=== PATIENT | female | born 1995 | race Caucasian/White ===

== ENCOUNTER 2021-03-20 15:35 | Emergency (ER) | payer BC, SELFPAY ==
[2021-03-20 15:46] VITALS: BP 122/81; PULSE 78; RESP 16; TEMP 36.7; O2SAT 100
[2021-03-20 15:47] VITALS: BP 122/81; PULSE 78; RESP 16; TEMP 36.7; O2SAT 100
--- NOTE | 2021-03-20 16:14 | ED.EAR ---
HPI - Ear Problem General Chief complaint: Ear Stated complaint: Ear Pain Time Seen by Provider: 03/20/21 15:52 Source: patient and RN notes reviewed Mode of arrival: ambulatory Limitations: no limitations History of Present Illness HPI Narrative: 25-year-old female who presents to [facility] with complaints of ear popping for the last few days and pressure. Patient states that she had a really bad cold about 5 weeks ago and she has never really gotten over it.She states that she has cough at night especially and continues to have some nasal drainage. Patient states that she continues to have some nasal drainage, denies any known fevers chills or sweats.. 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 MD Complaint: ear pain Location: bilateral Related Data Allergies Allergy/AdvReac Type Severity Reaction Status Date / Time No Known Allergies Allergy Verified 03/20/21 15:48 Review of Systems Review of Systems: CONSTITUTIONAL: Denies fever, chills, or sweats. EYES: Denies visual changes, redness, or discharge. ENT: Positive rhinorrhea, congestion, sore throat, or otalgia. CARDIOVASCULAR: Denies chest pain, palpitations, or edema. RESPIRATORY: Positive for cough denies dyspnea. GASTROINTESTINAL: Denies abdominal pain, nausea, vomiting, or diarrhea. GENITOURINARY: Denies dysuria or hematuria. SKIN: Denies rash or itching. MUSCULOSKELETAL: Denies back pain, joint pain, or myalgia. NEUROLOGIC: Denies headache, numbness, or weakness. PSYCHIATRIC: Denies anxiety or depression. All systems reviewed & are unremarkable except as noted in HPI and below PMFSH Past Medical History Medical History (Updated 03/20/21 @ 17:42 by Jayda Recio NP) Sinus problem Strep throat Surgical History Surgical History (Updated 03/20/21 @ 17:42 by Jayda Recio NP) No history of previous surgery Family History Family History (Updated 03/20/21 @ 17:43 by Jayda Recio NP) Other No significant family history Social History Social History (Updated 03/20/21 @ 17:43 by Jayda Recio NP) Smoking status: Never smoker Alcohol intake: current Alcohol use details: rare social Substance use: never Living arrangements: with family Gender identity (if verbalized by the patient): Female Comments At time of signature, agree with nursing past medical, surgical, social and family history. There is no relevant family history pertinent to the presenting complaint Exam Narrative: GENERAL: Well-appearing, well-nourished, and in no acute distress. HEAD: Normocephalic, atraumatic. EYES: PERRLA and EOMI. ENT: Nares red with clear rhinorrhea No epistaxis. Mucous membranes moist.TM's normal with dull light reflex, throat red with tonsils enlarged and swollen NECK: Supple.lymphadenopathy CHEST: Clear to auscultation. No respiratory distress.cough noted, SAO2 100% on room air HEART: Regular rate and rhythm. No murmur heard. Normal peripheral pulses. ABDOMEN: Soft, nontender, nondistended, normal active bowel sounds. EXTREMITIES: Normal range of motion. No edema. SKIN: Warm, dry, no rash. NEURO: No focal deficits. Alert and oriented x3. Course Vital Signs Vital signs: Vital Signs Temperature 36.7 C 03/20/21 15:46 Pulse Rate 78 03/20/21 15:46 Respiratory Rate 16 03/20/21 15:46 Blood Pressure 122/81 03/20/21 15:46 Pulse Oximetry 100 03/20/21 15:46 Temperature 36.7 C 03/20/21 15:47 Pulse Rate 78 03/20/21 15:47 Respiratory Rate 16 03/20/21 15:47 Blood Pressure 122/81 03/20/21 15:47 Pulse Oximetry 100 03/20/21 15:47 Medical Decision Making Differential Diagnosis Differential Diagnosis: pharyngitis, strep pharyngitis, URI, tonsillitis, otitis media Medical Records Medical records reviewed: Yes I reviewed the external patient's medical records. Vital Signs Vital Signs: Vital Signs Temperature 36.7 C 03/20/21 15:46 Pulse Rate 78 03/20/21 15:46 Re
== END 2021-03-20 16:40 | disposition home or self-care (01) ==
PROVIDERS: Emergency Provider Registered Nurse
DX: J03.90 Acute tonsillitis, unspecified (principal)
CPT/HCPCS: 87081; 87880; 99213; G0463

== ENCOUNTER 2021-06-19 14:20 | Emergency (ER) | payer BC, SELFPAY ==
[2021-06-19 14:43] VITALS: BP 132/77; PULSE 94; RESP 18; TEMP 36.5; O2SAT 100
--- NOTE | 2021-06-19 15:33 | ED.GENADULT ---
HPI - General Adult General Chief complaint: Upper Respiratory Infection Stated complaint: cold symptoms,both ears clogged Source: patient Mode of arrival: ambulatory Limitations: no limitations History of Present Illness HPI narrative: Patient is a 25-year-old female presents to the [facility] via POV for evaluation of upper respiratory symptoms that have been present proximately 1 week. Additionally, she reports sore throat, cough, and rhinorrhea. She states her nasal drainage and cough is producing a small amount of green discharge. OTC cold meds provide some relief. Nothing worsens symptoms. She states her children have been ill with similar signs and symptoms. Patient is vaccinated against Covid although tested positive in April 2021. Related Data Home Medications Medication Instructions Recorded Confirmed levonorgestrel [Mirena] 1 insert INTRAUTERINE ONCE 06/19/21 06/19/21 Allergies Allergy/AdvReac Type Severity Reaction Status Date / Time No Known Allergies Allergy Verified 06/19/21 14:56 Review of Systems Review of Systems: Denies fever, chills, sweats, change in appetite, poor p.o. intake, myalgia, fatigue, drooling, difficulty swallowing, rhinorrhea, sneezing, sinus pain, sinus pressure, headaches, LOC, wheezing, cyanosis, shortness of breath, abdominal pain, nausea, vomiting, diarrhea, chest pain, heart palpitations PMFSH Past Medical History Medical History (Updated 06/19/21 @ 15:35 by Johana Ernst, [facility], ) Sinus problem Strep throat Surgical History Surgical History (Updated 03/20/21 @ 17:42 by Jayda Recio NP) No history of previous surgery Family History Family History (Updated 03/20/21 @ 17:43 by Jayda Recio NP) Other No significant family history Social History Social History (Updated 03/20/21 @ 17:43 by Jayda Recio NP) Smoking status: Never smoker Alcohol intake: current Alcohol use details: rare social Substance use: never Gender identity (if verbalized by the patient): Female Exam Narrative: GENERAL: Well-appearing, well-nourished, and in no acute distress. HEAD: Normocephalic, atraumatic. No sinus tenderness or facial swelling appreciated. EYES: PERRLA and EOMI. No evidence of erythema, swelling, or drainage. ENT: Bilateral external ears and ear canals normal. Bilateral TMs are retracted otherwise normal.No TM perforation. Small amount of clear nasal drainage noted to bilateral naris. Nares clear or epistaxis. Bilateral turbinates moderately edematous. Mucous membranes moist and pink. Uvula is midline without erythema and swelling. Mild erythema noted to posterior pharynx otherwise normal. CHEST: Bilateral lung carpenter are clear to auscultation. No respiratory distress. No evidence of cough or pleuritic cp upon examination. HEART: Regular rate and rhythm. No murmur, gallop, or rub heard. EXTREMITIES: Normal range of motion. No edema. SKIN: Warm, dry, no rash. NEURO: No focal deficits. Alert and oriented x3. Course Vital Signs Vital signs: Vital Signs Temperature 97.7 F 06/19/21 14:43 Pulse Rate 94 06/19/21 14:43 Respiratory Rate 18 06/19/21 14:43 Blood Pressure 132/77 06/19/21 14:43 Pulse Oximetry 100 06/19/21 14:43 Temperature 97.7 F 06/19/21 14:43 Pulse Rate 94 06/19/21 14:43 Respiratory Rate 18 06/19/21 14:43 Blood Pressure 132/77 06/19/21 14:43 Pulse Oximetry 100 06/19/21 14:43 Due to an elevated blood pressure, I had a detailed discussion with the patient and/or guardian regarding the need for follow-up with their primary care provider within the next 3-4 days. Patient verbalized understanding and agreed. Medical Decision Making MDM Narrative Medical decision making narrative: The patient/guardian displays adequate decision making capability and despite a detailed discussion of alternatives, benefits, risks, and consequences refuses rapid strep and influenza testi
== END 2021-06-19 15:40 | disposition home or self-care (01) ==
PROVIDERS: Emergency Provider Nurse Practitioner Family
DX: J06.9 Acute upper respiratory infection, unspecified (principal)
CPT/HCPCS: 99213; G0463

== ENCOUNTER 2022-07-14 17:29 | Emergency (ER) | payer BC, OTHER, SELFPAY ==
[2022-07-14 17:41] VITALS: BP 123/92; PULSE 97; RESP 16; TEMP 36.6; O2SAT 100
--- NOTE | 2022-07-14 18:03 | ED.URI ---
HPI - URI/Sore Throat General Chief Complaint: Upper Respiratory Infection Stated Complaint: Sore Throat Time Seen by Provider: 07/14/22 17:58 Source: patient Mode of arrival: ambulatory Limitations: no limitations History of Present Illness HPI Narrative: Patient presents today complaining of a 2 week history of mild sore throat that has worsened since yesterday. Denies any additional symptoms to include fever, cough, shortness of breath or difficulty swallowing. She currently rates her pain 5/10 and has been taking Tylenol with mild relief. States was diagnosed with strep throat at the beginning of June. Related Data Home Medications Medication Instructions Recorded Confirmed levonorgestrel 20 mcg/24 hours (8 1 insert intrauterine ONCE 06/19/21 07/14/22 yrs) 52 mg intrauterine device (Mirena) bupropion HCl 150 mg 24 hr tablet, 150 mg PO DAILY 07/14/22 07/14/22 extended release Allergies Allergy/AdvReac Type Severity Reaction Status Date / Time No Known Allergies Allergy Verified 07/14/22 17:31 Review of Systems Review of Systems: CONSTITUTIONAL: Denies body aches, fever, chills, or sweats. EYES: Denies visual changes, redness, or discharge. ENT: Denies rhinorrhea, congestion, or otalgia.+ sore throat CARDIOVASCULAR: Denies chest pain, palpitations, or edema. RESPIRATORY: Denies cough or dyspnea. GASTROINTESTINAL: Denies abdominal pain, nausea, vomiting, or diarrhea. GENITOURINARY: Denies dysuria or hematuria. SKIN: Denies rash, itching, or wounds. MUSCULOSKELETAL: Denies back pain, joint pain, or myalgia. NEUROLOGIC: Denies headache, numbness, tingling, or weakness. PSYCH: Denies depression or anxiety. [facility] Past Medical History Medical History Sinus problem Strep throat Surgical History Surgical History No history of previous surgery Family History Family History Other No significant family history Social History Social History Smoking status: Never smoker Alcohol intake: current Alcohol use details: rare social Substance use: never Living arrangements: with family Gender identity (if verbalized by the patient): Female Comments At time of signature, I have reviewed and agree with nursing past medical, surgical, social and family history unless otherwise noted. Please see nursing chart for further information. There is no relevant family history pertinent to the presenting complaint Exam Narrative: GENERAL: Well-appearing, well-nourished, and in no acute distress. HEAD: Normocephalic, atraumatic. EYES: EOMI. No redness or drainage. Conjunctivae normal. ENT: Mucous membranes pink and moist. Nares clear. No rhinorrhea. TMs normal bilaterally. Throat erythematous with mild edema. Small amount of white exudate on the tonsils. Uvula midline. NECK: Normal AROM. Supple. No lymphadenopathy. CHEST: No respiratory distress. Clear to auscultation. HEART: Regular rate and rhythm. No murmur appreciated. Normal peripheral pulses. EXTREMITIES: Normal range of motion. No edema. SKIN: Warm, dry, no rash. Capillary refill normal. Normal skin turgor. NEURO: No focal deficits. Alert and oriented x3. Gait steady. PSYCH: Normal affect. No signs of depression or anxiety. Course Course Level of Care: Express Care Visit Vital Signs Vital signs: Vital Signs Temperature 97.8 F 07/14/22 17:41 Pulse Rate 97 07/14/22 17:41 Respiratory Rate 16 07/14/22 17:41 Blood Pressure 123/92 H 07/14/22 17:41 Pulse Oximetry 100 07/14/22 17:41 Oxygen Delivery Room Air 07/14/22 17:41 Temperature 97.8 F 07/14/22 17:41 Pulse Rate 97 07/14/22 17:41 Respiratory Rate 16 07/14/22 17:41 Blood Pressure 123/92 H
== END 2022-07-14 18:10 | disposition home or self-care (01) ==
PROVIDERS: Emergency Provider Nurse Practitioner; PCP Nurse Practitioner Family
DX: J02.0 Streptococcal pharyngitis (principal)
CPT/HCPCS: 87880; 99213; G0463

== ENCOUNTER 2023-06-16 12:01 | Emergency (ER) | payer BC, OTHER, SELFPAY ==
[2023-06-16 12:28] VITALS: BP 119/76; PULSE 116; RESP 20; TEMP 36.8; O2SAT 99
--- NOTE | 2023-06-16 12:58 | ED.URI ---
HPI - URI/Sore Throat General Chief Complaint: Upper Respiratory Infection Stated Complaint: Sore Throat, Cough, Earache, Congestion Time Seen by Provider: 06/16/23 12:35 Source: patient Mode of arrival: ambulatory Limitations: no limitations History of Present Illness HPI Narrative: Melissa is a 27-year-old female patient presenting to the clinic today with complaints of sore throat, cough, earache, and nasal congestion x1 week. She reports that she is 30 weeks she is unsure of what medication she can take. She denies any fever or chills currently. MD elicited complaint: sore throat and nasal congestion Related Data Allergies Allergy/AdvReac Type Severity Reaction Status Date / Time No Known Allergies Allergy Verified 07/14/22 17:31 Review of Systems Review of Systems: Pertinent positives per HPI. Patient denies any fever, chills, rash, headache, visual changes, dizziness, shortness of breath, chest pain, palpitations, nausea, vomiting, diarrhea, constipation, abdominal pain, or any urinary issues. PMFSH Past Medical History Medical History Sinus problem Strep throat Surgical History Surgical History No history of previous surgery Family History Family History Other No significant family history Social History Social History Smoking status: Never smoker Alcohol intake: current Alcohol use details: rare social Substance use: never Living arrangements: with family Gender identity (if verbalized by the patient): Female Comments At the time of my signature, I reviewed and agree with the nursing past medical, surgical, social, and family history. There is no relevant family history pertinent to the patient complaint. Exam Narrative: General: Well-developed, well nourished, in no apparent distress Head: Normocephalic, atraumatic Eyes: Pupils equally round and reactive to light bilaterally, EOM intact, sclera and conjunctive clear, no discharge, lids normal Ears: TMs intact and congested, ear canals clear, no drainage, grossly hearing normal. Nose: Nares patent, clear discharge, no inflammation, no sinus tenderness. Mouth: Oral pharynx red without lesions or masses, good dentition, MMM. Neck: Supple, trachea midline, no enlargement of anterior or posterior cervical nodes, no thyroid masses or goiter palpable. Cardio: Regular rate and rhythm, s1 and s2 normal, no murmur appreciated. Resp: Clear to auscultation bilaterally, no rhonchi, rales, wheezing or rubs Course Course Emergency Course: Portions of this record may have been created with voice recognition software. Level of Care: Express Care Visit Vital Signs Vital signs: Vital Signs Temperature 36.8 C 06/16/23 12:28 Pulse Rate 116 H 06/16/23 12:28 Respiratory Rate 20 06/16/23 12:28 Blood Pressure 119/76 06/16/23 12:28 Pulse Oximetry 99 06/16/23 12:28 Oxygen Delivery Room Air 06/16/23 12:28 Temperature 36.8 C 06/16/23 12:28 Pulse Rate 116 H 06/16/23 12:28 Respiratory Rate 20 06/16/23 12:28 Blood Pressure 119/76 06/16/23 12:28 Pulse Oximetry 99 06/16/23 12:28 Oxygen Delivery Room Air 06/16/23 12:28 Vital signs reviewed MDM - URI/Sore Throat MDM Narrative Medical decision making narrative: At the time of visit patient is resting comfortably on the exam table. Patient appears to be nontoxic. Strep test was negative. We will send strep for culture. I suspect patient has URI/pharyngitis with viral syndrome. Supportive measures were discussed with the patient and they voiced understanding discharge instructions and agrees to treatment plan. Return precautions reviewed Differential Diagnosis Differential diagnosis: Likely upper r
== END 2023-06-16 13:08 | disposition home or self-care (01) ==
PROVIDERS: Emergency Provider Nurse Practitioner Family; PCP Nurse Practitioner Family
DX: O98.513 Other viral diseases complicating pregnancy, third trimester (principal); Z3A.30 30 weeks gestation of pregnancy; J06.9 Acute upper respiratory infection, unspecified; J02.9 Acute pharyngitis, unspecified
CPT/HCPCS: 87081; 87880; 99213; G0463

== ENCOUNTER 2024-02-07 19:14 | Emergency (ER) | payer BC, OTHER, SELFPAY ==
[2024-02-07 19:26] VITALS: BP 146/68; PULSE 78; RESP 18; TEMP 36.7; O2SAT 100
--- NOTE | 2024-02-07 19:33 | ED.WOUNDLAC ---
HPI - Wound/Laceration General Chief Complaint: Wound/Laceration Stated Complaint: lt pink cut Time Seen by Provider: 02/07/24 19:34 Source: patient and RN notes reviewed Mode of arrival: ambulatory Limitations: no limitations History of Present Illness HPI narrative: 28-year-old female presents with concern for laceration of the 5th digit of her left hand that she sustained using scissors this morning. Reports she wrapped it up in a bandage and when she took the bandage off later today it was still bleeding. She is up-to-date on her vaccinations Related Data Home Medications Medication Instructions Recorded Confirmed No Home Medications 02/07/24 02/07/24 Allergies Allergy/AdvReac Type Severity Reaction Status Date / Time No Known Allergies Allergy Verified 02/07/24 19:25 Review of Systems Review of Systems: CONSTITUTIONAL: Denies malaise, chills, sweats, or fever. SKIN: Reports laceration to the 5th digit left hand MUSCULOSKELETAL: Denies muscle skeletal pain NEUROLOGIC: Denies numbness, weakness All systems reviewed & are unremarkable except as noted in HPI and below PMFSH Past Medical History Medical History Sinus problem Strep throat Surgical History Surgical History No history of previous surgery Family History Family History Other No significant family history Social History Social History Smoking status: Never smoker Alcohol intake: current Alcohol use details: rare social Substance use: never Living arrangements: with family Gender identity (if verbalized by the patient): Female Comments At time of signature, agree with nursing past medical, surgical, social and family history. There is no relevant family history pertinent to the presenting complaint Exam Narrative: GENERAL: Well-appearing, well-nourished, and in no acute distress. HEAD: Normocephalic, atraumatic. EYES: PERRLA, conjunctivae clear ENT: Mucous membranes moist. NECK: Supple. No lymphadenopathy CHEST: Clear to auscultation. No respiratory distress. HEART: Regular rate and rhythm. SKIN: Warm, dry. 1 cm superficial linear laceration noted to the lateral 5th digit of the left hand NEURO: Alert and oriented x3. PSYCH: Normal mood and affect Course Course Emergency Course: Patient is aware of diagnosis, understands and agrees to treatment plan. Anticipatory guidance given. Patient agrees to follow-up as directed and is aware of reasons to seek care at the emergency department. Portions of this record may have been created with voice recognition software Level of Care: Express Care Visit Vital Signs Vital signs: Vital Signs Temperature 98.1 F 02/07/24 19:26 Pulse Rate 78 02/07/24 19:26 Respiratory Rate 18 02/07/24 19:26 Blood Pressure 146/68 H 02/07/24 19:26 Pulse Oximetry 100 02/07/24 19:26 Oxygen Delivery Room Air 02/07/24 19:26 Temperature 98.1 F 02/07/24 19:26 Pulse Rate 78 02/07/24 19:26 Respiratory Rate 18 02/07/24 19:26 Blood Pressure 146/68 H 02/07/24 19:26 Pulse Oximetry 100 02/07/24 19:26 Oxygen Delivery Room Air 02/07/24 19:26 Reviewed. Procedures Laceration Laceration 1: Date: 02/07/24 Time: 19:39 Site: hand Side (If applicable): left Size (cm): 1 Description: linear Depth: simple, single layer Pre-repair: wound explored and irrigated ====== Skin Level ====== Skin layer closed with: dermabond ====== Subcutaneous Layer ====== ====== Muscle Layer ====== ====== Tendon Layer ====== MDM - Wound/Laceration MDM Narrative Medical decision making narrative: Wound explored for foreign body and copious irrig
== END 2024-02-07 19:50 | disposition home or self-care (01) ==
PROVIDERS: Emergency Provider Nurse Practitioner; PCP Nurse Practitioner Family
DX: S61.217A Laceration without foreign body of left little finger without damage to nail, initial encounter (principal); W27.2XXA Contact with scissors, initial encounter
CPT/HCPCS: 12001; 99212; G0463

== ENCOUNTER 2024-11-12 08:11 | Emergency (ER) | payer BC, OTHER, SELFPAY ==
[2024-11-12 08:21] VITALS: BP 121/69; PULSE 73; RESP 18; TEMP 36.6; O2SAT 100
--- NOTE | 2024-11-12 08:25 | ED.FEMALEGU ---
HPI - Female Genitourinary General Chief complaint: Urogenital-Female Stated complaint: uti symptoms Time Seen by Provider: 11/12/24 08:34 Source: patient, RN notes reviewed and old records reviewed Mode of arrival: ambulatory Limitations: no limitations History of Present Illness HPI Narrative: 28-year-old female presents to the [facility] with feeling of needing to urinate but could not yesterday. Had some pain with urination noticed some blood on the toilet paper. States symptoms were worse yesterday. Did drink more than normal amount of caffeine yesterday Denies fevers, abdominal pain. Last menstrual period was 22 Oct 2024 Related Data Home Medications ?Medication ?Instructions ?Recorded ?Confirmed ?Last Taken ?Type No Home Medications 02/07/24 02/07/24 Unknown History Allergies Allergy/AdvReac Type Severity Reaction Status Date / Time No Known Allergies Allergy Verified 11/12/24 08:25 Review of Systems Review of Systems: All systems reviewed & are unremarkable except as noted in HPI and below Constitutional: Constitutional: Reports no additional constitutional complaints ENT: Reports system reviewed and no additional complaints, except as documented Cardiovascular: Cardiovascular: Reports no additional cardiovascular complaints, Denies chest pain and Denies dyspnea Respiratory: Respiratory: Reports no additional respiratory complaints, Denies chest congestion, Denies cough and Denies dyspnea Genitourinary: Genitourinary: Reports as per HPI Musculoskeletal: Musculoskeletal: Reports no additional musculoskeletal complaints Integumentary/Breasts: Skin/Breast: Reports system reviewed and no additional complaints, except as docu PMFSH Past Medical History Medical History Sinus problem Strep throat Surgical History Surgical History No history of previous surgery Family History Family History Other No significant family history Social History Social History Smoking status: Never smoker Alcohol intake: current Alcohol use details: rare social Substance use: never Living arrangements: with family Gender identity (if verbalized by the patient): Female Comments At the time of my signature, I reviewed and agree with the nursing past medical, surgical, social, and family history. There is no relevant family history pertinent to the patient complaint. Exam Const: General: cooperative, healthy appearing, comfortable, no acute distress, well developed, alert and well nourished Nutritional Appearance: well nourished Orientation/consciousness: patient oriented x3 Limitations: no limitations HENMT: Head: normal to inspection Eyes: General: appearance normal, both eyes and all related structures Alignment and Position: alignment normal Neck: Neck: normal visual inspection, full ROM, no lymphadenopathy and no meningeal signs Chest: Chest palpation & inspection: normal inspection of the chest Resp: Effort & Inspection: normal respiratory effort and able to speak in complete sentences Auscultation: clear to auscultation bilaterally, no crackles, no rales, no rhonchi and no wheezes Cardio: Rate: regular rate GI: GI Palp: No abdominal tenderness : General: Yes no CVA tenderness Skin: General skin exam: normal color and no rashes or lesions noted Neuro: General: patient oriented x3, gait normal, moves all extremities and no meningeal signs Cognition (Neuro): normal cognition Speech: normal speech Gait exam (Neuro): Normal gait present Extrem: General: normal to inspection, full ROM, capillary refill normal and normal gait Psych: Appearance: grossly normal and well kempt Mental Status: mental status grossly normal Speech and movement: Normal speech and movement present and Clear speech present Affect: normal affect Attitude: cooperative Course Course Level of Care: Express Care Visit Vital Signs Vital signs: Vital Signs Temperature 97.8 F 11/12/24 08:21 Pulse Rate 73 11/12/24 08:21 Respiratory Rate 18 11/12/24 08:21 Blood Pressure 121/69 11/12/24 08:21 Pulse Oximetry 100 11/12/24 08:21 Oxygen Delivery Room Air 11/12/24 08:21 Temperature 97.8 F 11/12/24 08:21 Pulse Rate 73 11/12/24 08:21 Respiratory Rate 18 11/12/24 08:21 Blood Pressure 121/69 11/12/24 08:21 Pulse Oximetry 100 11/12/24 08:21 Oxygen Delivery Room Air 11/12/24 08:21 Reviewed MDM - Female Genitourinary MDM Narrative Medical decision making narrative: Patient sitting in exam. Patient is, vitals are stable. Patient presents with concerns for a UTI. Urine dip does not show signs of a UTI. No indication for culture. Patient appropriate for outpatient treatment with close follow-up Discharge instructions reviewed with patient, as well as provided in writing per nursing staff. The instructions also include specific and strict return/GO TO THE ER as well as f/u information. All questions have been answered, and the patient deny any further questions with discharge and discharge plan. Some parts of this dictation were generated by voice recognition software and may contain typographical and/or grammatical inaccuracies. Differential Diagnosis Differential diagnosis: Likely urinary tract infection, cystitis and other (Dysuria) Lab Data Labs: Lab Results 11/12/24 Range/Units 08:27 POC Urine Color Yellow POC Urine Clarity Clear POC Urine pH 8.5 POC Ur Specif [place] 1.015 POC Urine Protein Negative (Negative) POC Ur Glucose (UA) Negative (Negative) POC Urine Ketones Negative (Negative) POC Urine Blood Negative (Negative) POC Urine Nitrite Negative (Negative) POC Urine Bilirubin Negative (Negative) POC Urine Urobilinogen 0.2 POC U Leukocyte Esteras Negative (Negative) Reviewed Critical Care Time Critical Care Time Critical Care Time: No Discharge Plan Discharge Clinical Impression: Dysuria Patient Disposition: Home Condition: Stable Instructions: Antibiotic Form, Dysuria (ED) Additional Instructions: Increased fluids such as water, Gatorade, Pedialyte and ice pops. Avoid caffeinated carbonated beverages Take Tylenol as needed for pain Today your urine did not show signs of a UTI. Follow-up with primary care Patient Language: Mohawk Prescriptions: No Action No Home Medications Follow-up/Referrals: Christy,Denise Nava APRN [Primary Care Provider] - 2 Weeks ([facility] care follow up ) Time of Disposition: 08:41
[2024-11-12 08:29] LABS: EDUAAPPEAR Clear; EDUABILI Negative (Negative); EDUABLOOD Negative (Negative); EDUACOLOR1 Yellow; EDUAGLUCOSE Negative (Negative); EDUAKETONE Negative (Negative); EDUALEUKO Negative (Negative); EDUANITRATE Negative (Negative); EDUAPH 8.5; EDUAPROTEIN Negative (Negative); EDUASPGRAVITY 1.015; EDUAUROBILI 0.2
== END 2024-11-12 08:45 | disposition home or self-care (01) ==
PROVIDERS: Emergency Provider Nurse Practitioner; PCP Nurse Practitioner Family
DX: R30.0 Dysuria (principal)
CPT/HCPCS: 81003; 99212; G0463